=== PATIENT | male | born 1975 | race Caucasian/White ===

== ENCOUNTER 2020-07-26 18:58 | Outpatient (REF) | payer OTHER, SELFPAY ==
[2020-07-29 21:24] LABS: COVID-19 RT-PCR Result NEGATIVE (Negative)
== END 2020-07-26 19:18 ==
LOC: NCHCN 18:58
PROVIDERS: PCP Nurse Practitioner Family; Visit Provider Nurse Practitioner Family
DX: J31.0 Chronic rhinitis (principal)
CPT/HCPCS: U0003

== ENCOUNTER 2020-09-29 15:29 | Outpatient (REF) | payer OTHER, SELFPAY ==
--- OUTSIDE RECORDS SUMMARY | 2020-09-29 15:37 | XMS_ITS | Encounter Summary ---
:1975 Author Care Team Providers Name Role Phone Good Rhodes Primary Care Provider [phone] Reason for Visit s/p L knee lateral release Assessment and Plan 1. Tear of medial meniscus of kn ee 2. Pain in left knee 3. Muscle weakness Discussion Note: None recorded.Patient educational handouts: No information available. Plan of Care Reminders Provider Appointments None ? ? recorded. Lab None ? ? recorded. Referral None ? ? recorded. Procedures None ? ? recorded. Surgeries None ? ? recorded. Imaging None ? ? recorded. Medications Name Start Date ? ? Aleve 220 mg tablet ? Take 1 tablet every 12 hours by oral route as needed. Bactrim DS 800 mg-160 mg tablet ? Take 1 tablet every 12 hours by oral route for 10 day s. clonazepam 0.5 mg tablet ? Take once daily in the evening. cyclobenzaprine 5 mg tablet ? Osteo Bi-Flex ? once daily oxycodone 5 mg tablet ? paroxetine 40 mg tablet ? TAKE ONE TABLET BY MOUTH EVERY DAY ProAir HFA 90 mcg/actuation aerosol inhaler ? Inhale 2 puffs every 4 hours by inhalation route as n eeded for 30 days. promethazine 25 mg tablet ? Medications Administered None recorded. Vitals None recorded. Results Lab Results None recorded. Allergies Code Code System Name Reaction Severity Onset NKDA ? ? ? Problems Name Status Onset Date Source ? Essential Hypertension Active 03/20/2018 ? Pain of Right Shoulder Joint Active 03/20/2018 ? Muscle Weakness Active 05/30/2018 ? Generalized Anxiety Disorder Active 03/05/2019 ? Epidermoid Cyst of Skin Active ? History Procedures Date Name Performed by ? 09/05/2018 Nadine Arth[facility] Srg Capsulorraphy Information not available Notes: R shldr arthroscopy w/debrid, DCE, SAD, bicep tenodesis Vaccine List Vaccine Type Tdap 09/20/2017?0.5 mL Social History Tobacco Smoking Status Former Smoker Notes: quit 20 12 Are you currently employed? Y Blind or serious difficulty N seeing Chewing tobacco none Most Recent Tobacco Use 05/13/2019 Screening Advance directive N Notes: given pack et E-cigarette/Vape Status Never used electronic cigarettes Exercise level Occasional Hand Dominance Right Animal exposure? Y Alcohol intake None Live alone or with others? with others Smokeless Tobacco Status Never used smokeless tobacco Language Difficulties No Hard of hearing or deaf in one Y Notes: left ear from or both ears? accident in 1998 Passive smoke exposure? N Caffeine intake Occasional Notes: 2 cups of coffee daily Drug Use N Occupation construction crew member Functional Status No Impairment. Past Encounters 07/15/2020 Tear of Medial Meniscus of Knee; Pain in Left Knee; Muscle Weakness Apoorva Lopez, PT: Medical [facility] [address], [address], [place] [address], Ph. History of Present Illness ? [facility] PT Evaluation Reported By: Patient Visit Type: Today's therapy visit: Init ial Evaluation Subjective:: Patient ID check patient ID and date of checked. Subjective ; Pt rep orted he has had knee pain on/off for years b ut it recently worsened without CAMPBELL. Pt had surgery on 05/19/2020. He reports after his surgery him and his asked the surgeon i f he needed PT and a knee brace and he was told n o. He reports he was given a knee brace two weeks ago at his follow-up and the PA told hi m he should have had a brace on since surgery and participated in PT. He reports he is behind appr oximately 6 weeks because he did not use a bra ce or have PT immediately after surgery. P t travels for work and would like to be given a program to do at home as he cannot attend PT sessions regularly Pertinent Past Medical History: Pertinent Past Medical History includes ; No significant medical hx repor syed Pertinent Medications: Pertinent Medications inclu denise ; Paroxetine Pertinent Allergies: Pertinent Allergies includes ; None reported Prior Therapy/Diagnostics/Treatment:: Prior Diagnostic Results X-ray, MRI; X-ray of L knee on 03/10/20: Three views show no evidence of acute fracture or subluxatio n. Nojoint effusion seen. Hoffa's fat pad prese rved. Minimal osteophytesin medial and pat ellofemoral compartments. IMPRESSION: M inimal osteophyte formation.04/10/20: MRI L kne e: FINDINGS: Comparison made with plain f ilms of 09 March 2020. Thereis abnormal sign al in the body and posterior horn of the medial meniscus with apparent extension to the in ferior articular surfaceand consistent with t ear. Mild signal anterior horn suggestingintr ameniscal degeneration. No abnormal s ignal noted in lateralmeniscus to suggest t ear or intrameniscal degeneration. ACL appearsin tact. PCL intact. Medial and lateral collatera l ligaments as wellas patellar and quadrice ps tendons intact. Patellar retinaculaintact. No joint effusion noted. Questionable chondra l edema medialaspect medial patellar facet on axi al imaging but this could beartifactual. Correl ate clinically. No other focal chondralabnormal ities are seen. Slight bone marrow edema arline pected medialaspect of medial tibial plateau. T here is a small, approximately 1.3cm multilob ular cyst at the PCL insertion. Bone marrow sign alintensities otherwise show no abnormalit ies. IMPRESSION: Tear body and posterior horn medial meniscus.Intrameniscal degen eration anterior horn. No evident ACL tear.S mall multilobular cyst in tibial plateau at in sertion of PCL.Minimal bone marrow tomas a medial aspect of medial tibial plateau.Questi onable chondral edema medial aspect of media l patellar facetarticular cartilage but this could be artifactual. Correlateclini anne marie. . Prior Treatment surgery *Barriers/Needs:: Barriers to Learning none id entified Current Occupational Profile:: Current Occupation ; Co nstruction worker. Current Job Description and Requirements ; Lifting, bending, squatting, climbing ladders. Current Restrictions ; Surge on advised pt to stay on level ground and alexander n limit his activity *Impairment Observations and Previous Level of Functio n ; Independent with Tolerance to Daily Living:: ADLs without pain or diffi culty. Current Level of Function ; Pt has pain an d difficulty with walking (knee gives out freq uently), getting out of bed, stairs, lifting, kne eling, and squatting Notes: <p>Pt reports his pain is lo cated inside his L knee and medially. He will h ave an occasional sharp pain.</p><p>Pain is 9/ 10 at worst.</p> Review of Systems None recorded. Physical Exam ? [facility] PT Knee, [facility] PT Assessme nt and Plan Reported By: Patient Knee Inspection: Inspection ; small incision sites med and lateral to ant L knee. Healing well, no s/s of infection Knee Flexion ROM: AROM right:130 degrees, left :130 degrees Knee Extension ROM: AROM right:0 degrees, left:0 degrees Knee Flexion Strength: Strength right: 5, 5, , left : 4, +4, + Knee Extension Strength: Strength right: 5, 5, , left : 4, +4, + Additional Screening Completed: Lower Quadrant Screen ; R hip strength in all planes 5/5L hip strength in abducti on and adduction 4+/5. In hip extension and flexion 5/5 Gait: Gait Deviations ; Hip ER and knee varus noted bilaterally *Patient Education: Patient Education Provided T radha ; Anatomy of the knee, healing after surgery, POC, and HEP *Physical Therapy Assessment: Physical Therapy Assessm ent ; Pt is a 44 yo male with dx of s/p L knee latera l release on 05/19/20. Pt presents with pain and de creased strength. He would benefit from skilled P T services to address his impairments listed. Pt w as given a visual HEP and his s/s are expected to resolve with completion of his program. His chart wi ll remain open for 30 days then be discharged if h e does not return for further therapy. Pts clinic al history is significant for chronic L kn ee pain and current job tasks. Pt reports pain and d ifficulty with walking (knee gives out frequently), getting out of bed, stairs, lifting, kneeling, a nd squatting. Pts clinical presentation is sta ble and he is determined to have a low complexity lev el. Rehab Potential: good rehab potential to [facility] the established goals. Date of last Evaluati on/Progress Summary ; 07/15/20 Short Term Goal(s): STGs Deferred: STGs deferred to LTGs Podiatric Medicine Professor Goal(s): [facility] Goals (including t monika frames) ; In 1 visit pt will: 1. Be independent w ith HEP Patient Goal(s): Patient Goal (s): ; Decrease R knee pain and increase strength Frequency: Treatment frequency: one olimpia e/as needed Intensity: Treatment Intensity: N/A Duration: Treatment duration: N/A Planned Treatment Interventions: PT Charge Code 98618: therapeutic exercises, 71732: therapeutic activity, 45231: neuromuscular reeducation Discharge Plan: Discharge Plan: upon achievi ng goals or maximal benefit of therapy services *Plan: Therapy Plan Patient will be placed on hold *Time: Time In: ; 0715. Time Out: ; 0800. Total Time: ; 45 minutes
--- OUTSIDE RECORDS SUMMARY | 2020-09-29 15:37 | XMS_ITS | Encounter Summary ---
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 Past Encounters 08/16/2020 Tear of Medial Meniscus of Knee; Pain in Left Knee; Muscle Weakness Apoorva Lopez, PT: Medical [facility] [address], [address], [place] [address], Ph. History of Present Illness None recorded. Review of Systems None recorded. Physical Exam ? Notes: <p><strong>REHAB DISCHARGE S UMMARY</strong></p><p><strong>Therapy Diagnosis</strong>: L knee p ain and decreased strength</p><p><strong>Number of Sessions</strong>: 1 </p><p> <strong>Summary of Treatment</strong>: Initial evaluation, pt edu and HEP</ p><p><strong>Reason for Discharge</strong>: {{Patient did not return for additional therapy. Patient was placed on hold and did not contact Rehab wi th further needs or questions.* Patient no showed for remaining sessions.}}</p ><p><strong>Therapy Assessment</strong>: Pts chart was placed on hold aft er his IE and he did not contact the clinic for further services. Pt is appr opriate for d/c at this time. </p><p><strong>Goal Statu s</strong>: Pts goals status was not assessed because he did not return af ter his IE. </p><p><strong>Discharge Plan</strong>: Discharge fro m therapy today.</p><p>
</p>
--- OUTSIDE RECORDS SUMMARY | 2020-09-29 15:37 | XMS_ITS ---
:1975 Author Care Team Providers Name Role Phone HONG TRAVIS Primary Care Provider [phone] Allergies Code Code System Name Reaction Severity Status Onset NKDA ? Medications Name Status Start Date Stop Date ? ? Aleve 220 mg tablet Active ? Not availabl e Take 1 tablet every 12 hours by oral route as needed. amoxicillin 875 mg-potassium Active ? Not available clavulanate 125 mg tablet Bactrim DS 800 mg-160 mg tablet Active ? Not available Take 1 tablet every 12 hours by oral route for 10 days. cannabidiol (CBD) oral oil Completed ? 12/25 Take by oral route. clonazepam 0.5 mg tablet Active ? Not brandee ilable Take once daily in the evening. cyclobenzaprine 5 mg tablet Active ? Not available dexamethasone sodium phosphate 4 mg/mL injection solution Comple syed ? 08/28/2018 use 1 ml with each patch, apply 2 times per week with at least 24 hours window between removing and replacing patch. ibuprofen 600 mg tablet Completed ? 07/08/20 19 Osteo Bi-Flex Active ? Not available once daily oxycodone 5 mg tablet Active ? Not availa ble oxycodone-acetaminophen 5 mg-325 mg Completed ? 10/29/2018 tablet paroxetine 40 mg tablet Active ? Not avai lable TAKE ONE TABLET BY MOUTH EVERY DAY ProAir HFA 90 mcg/actuation aerosol Active ? Not available inhaler promethazine 25 mg tablet Active ? Not av ailable sertraline 50 mg tablet Completed ? 05/13/20 19 Problems Name Status Onset Date Source ? Essential Hypertension Active 03/20/2018 ? Pain of Right Shoulder Joint Active 03/20/2018 ? Muscle Weakness Active 05/30/2018 ? Generalized Anxiety Disorder Active 03/05/2019 ? Epidermoid Cyst of Skin Active ? History Procedure by Method Unknown ? History Procedures Date Name Performed by ? 09/05/2018 Nadine Arthrs Srg Capsulorraphy Information not available Notes: R shldr arthroscopy w/debrid, DCE, SAD, bicep tenodesis 05/13/2018 XR, Shoulder, 2 or More View [facility] (Internal) [address] [place] [address] (Work Place) 06/12/2018 MRI, Shoulder, W/o Contrast [facility] Radiology (Internal) [address] [place] [address] (Work Place) 06/28/2018 XR, Eye, for Foreign Body [facility]iology (Internal) [address] [place] [address] (Work Place) Results Lab Results Date Name Specimen Result Interpretation Description Value Range Status Address ? 03/30/2018 Lipid S - Chol 182 50-[address] [facility] Panel, mg/dL mg/dL Hospital L ab Serum (Internal) : [address] ? ? S - Trig 86 mg/dL 10-150 Final [facility] untry mg/dL Hospital L ab (Internal) : [address] ? ? S Low Hdl 34 mg/dL 40-60 Final [facility] untry mg/dL Hospital L ab (Internal) : [address] ? ? S High Ldl 131 0-130 Final [facility] mg/dL mg/dL Hospital L ab (Internal) : [address] 03/30/2018 BMP, Serum S - g/r 94 mg/dL 74-[address] [facility] or Plasma mg/dL Hospita l Lab (Internal) : [address] ? ? S - Bun 19 mg/dL 9-20 Final [facility] untry mg/dL Hospital L ab (Internal) : [address] ? ? S - Crea 0.70 0.66-1.25 Final [facility] mg/dL mg/dL Hospital L ab (Internal) : [address] ? ? S - Ca 8.7 8.4-10.2 Final [facility] mg/dL mg/dL Hospital L ab (Internal) : [address] ? ? S - Na 141 137-145 Final [facility] mmol/L mmol/L Hospital L ab (Internal) : [address] ? ? S - K 3.6 3.5-5.1 Final [facility] mmol/L mmol/L Hospital L ab (Internal) : [address] ? ? S - Cl 103 98-107 Final [facility] mmol/L mmol/L Hospital L ab (Internal) : [address] ? ? S - Tco2 27.0 22.0-30.0 Final [facility] mmol/L mmol/L Hospital L ab (Internal) : [address] Past Encounters 08/16/2020 Tear of Medial Meniscus of Knee; Pain in Left Knee; Muscle Weakness Apoorva Lopez, PT: [address] [facility] [facility] [facility] [address], [address], [place] [address], Ph. 07/15/2020 Tear of Medial Meniscus of Knee; Pain in Left Knee; Muscle Weakness Apoorva Lopez, PT: [address] [address], [address], [place] [address], Ph. 07/08/2019 Paronychia of Finger MARBELLA Olivares: [address] [place] [address], Ph. 05/13/2019 Active or Passive Immunization; Generali zed Anxiety Disorder MARBELLA Olivares: [address] [place] [address], Ph. 04/02/2019 Generalized Anxiety Disorder MARBELLA Olivares: [address] [place] [phone], Ph. Social History Tobacco Smoking Status Former Smoker Notes: quit 20 Vaccine List Vaccine Type Tdap 09/20/2017?0.5 mL Plan of Care Reminders Provider Appointments None ? ? recorded. Lab None ? ? recorded. Referral None ? ? recorded. Procedures None ? ? recorded. Surgeries None ? ? recorded. Imaging None ? ? recorded. Vitals 07/08/2019 10:00AM Acute 20 Height Weight BMI Blood Pressure 165.74 cm 93.89 kg 34.2 kg/m2 136/80 mm[Hg] 05/13/2019 07:40AM Follow Up 20 Height Weight BMI Blood Pressure 165.74 cm 94.06 kg 34.2 kg/m2 130/82 mm[Hg] 04/02/2019 08:00AM Follow Up 20 Height Weight BMI Blood Pressure 165.74 cm 93.98 kg 34.2 kg/m2 122/84 mm[Hg] 03/05/2019 07:40AM Acute 40 Height Weight BMI Blood Pressure 165.74 cm 97.84 kg 35.6 kg/m2 136/92 mm[Hg] 12/25/2018 02:00PM Acute 20 Height Weight BMI Blood Pressure 165.74 cm 96.48 kg 35.1 kg/m2 142/92 mm[Hg] 10/29/2018 02:00PM Acute 40 Height Weight BMI Blood Pressure 165.74 cm 96.33 kg 35.1 kg/m2 152/88 mm[Hg] 10/16/2018 03:15PM Follow Up 15 Height Weight 165.74 cm 09/18/2018 11:45AM Post Op 15 Height Weight 165.74 cm 06/12/2018 11:00AM Follow Up 40 Height Weight BMI Blood Pressure 165.74 cm 97.57 kg 35.5 kg/m2 158/90 mm[Hg] 04/10/2018 09:40AM Follow Up 20 Height Weight BMI Blood Pressure 165.74 cm 93.21 kg 33.9 kg/m2 142/86 mm[Hg] 03/20/2018 11:20AM Acute 20 Height Weight BMI Blood Pressure 165.74 cm 97.48 kg 35.5 kg/m2 154/102 mm[Hg] 11/16/2017 Blood Pressure 146/88 mm[Hg] 11/09/2017 Weight Blood Pressure 95.44 kg 142/78 mm[Hg] 11/02/2017 Weight Blood Pressure 95.62 kg 148/110 mm[Hg] 10/26/2017 Weight Blood Pressure 96.52 kg 130/82 mm[Hg] 10/17/2017 Weight Blood Pressure 96.52 kg 152/102 mm[Hg] 10/12/2017 Weight Blood Pressure 95.3 kg 136/80 mm[Hg] 10/05/2017 Weight Blood Pressure 94.94 kg 130/84 mm[Hg] 09/28/2017 Blood Pressure 150/82 mm[Hg] 09/20/2017 Height Weight Blood Pressure 165.74 cm 94.71 kg 166/100 mm[Hg]
[2020-09-29 15:50] LABS: HCT 49.2 % (40.0-50.0); MCH 29.1 pg (27.0-33.0); MCHC 32.5 % (32.0-36.0); MCV 89.6 fL (80-95); MPV 9.3 fL (8.0-11.0); Platelet Count 307 10^3/uL (130-400); RBC 5.49 10^6/uL (4.36-5.78); RDW 12.4 % (11.8-14.1); RDW-SD 40.9 fL; WBC 6.12 10^3/uL (4.4-10.8)
[2020-09-29 15:59] LABS: ALT 43 U/L (16-63); AST 22 U/L (15-37); Albumin 4.1 g/dL (3.4-5.0); Alkaline Phosphatase 81 U/L (46-116); Anion Gap 9.7 mmol/L (3-11); BUN 13 mg/dL (7-18); Bilirubin, Total 0.8 mg/dL (0.2-1.0); CO2 28.3 mmol/L (21.0-32.0); CREATININE 0.8 mg/dL (0.70-1.30); Calcium 9.1 mg/dL (8.5-10.1); Chloride 103 mmol/L (98-107); Glucose 89 mg/dL (74-106); Potassium 4.7 mmol/L (3.5-5.1); Sodium 141 mmol/L (136-145); Total Protein 7.5 g/dL (6.4-8.2)
== END 2020-09-29 15:30 | disposition home or self-care (01) ==
LOC: NCHCN 15:29
PROVIDERS: PCP Nurse Practitioner Family; Visit Provider Physician Assistant
DX: R11.10 Vomiting, unspecified (principal); R55 Syncope and collapse
CPT/HCPCS: 80053; 85027

== ENCOUNTER 2022-09-18 16:59 | Outpatient (REF) | payer OTHER, SELFPAY ==
[2022-09-18 17:57] LABS: Anion Gap 6.7 mmol/L (3-11); BUN 22 mg/dL (7-18); CO2 28.3 mmol/L (21.0-32.0); CREATININE 0.9 mg/dL (0.70-1.30); Calculated LDL 160 mg/dL (<100); Chloride 105 mmol/L (98-107); Cholesterol 220 mg/dL (<200); Glucose 108 mg/dL (74-106); HDL Cholesterol 43 mg/dL (40-60); Potassium 4.7 mmol/L (3.5-5.1); Sodium 140 mmol/L (136-145); Triglyceride 88 mg/dL (<150)
== END 2022-09-18 17:00 | disposition home or self-care (01) ==
LOC: NCHCN 16:59
PROVIDERS: Visit Provider Physician Assistant
DX: I10 Essential (primary) hypertension (principal)
CPT/HCPCS: 80048; 80061